=== PATIENT | female | born 1985 | race Asian ===

== ENCOUNTER 2017-04-16 02:50 | Inpatient (IN) | payer OTHER ==
[~2017-04-16] VITALS: Ht 160 cm; Wt 68.0 kg
[2017-04-16] MEDS ORDERED: LACTATED RINGERS 1,000 ML IV SCH (03:34)
[2017-04-16] MEDS ORDERED: OXYTOCIN 20 UNITS in LACTATED RINGERS 1,000 ML IV SCH (03:34)
[2017-04-16] MEDS ORDERED: AMPICILLIN 2,000 MG in NACL 0.9% MINI-BAG PLUS 100 ML IV SCH (03:35)
[2017-04-16] MEDS ORDERED: LACTATED RINGERS 500 ML IV SCH (03:35)
[2017-04-16] MEDS ORDERED: METHYLERGONOVINE 0.2 MG/ML AMP IM PRN ×2 (03:35→21:00)
[2017-04-16] MEDS ORDERED: OXYTOCIN 10 UNITS/ML VIAL IM SCH (03:35)
[2017-04-16] MEDS ORDERED: NALBUPHINE HYDROCHLORIDE 10 MG/ML VIAL IVP PRN (03:35)
[2017-04-16] MEDS ORDERED: PROMETHAZINE 25 MG/ML VIAL IVP PRN (03:35)
[2017-04-16] MEDS ORDERED: CARBOPROST 250 MCG/ML AMP IM PRN (03:35)
[2017-04-16 04:34] LABS: ALBUMIN 2.8 g/dL (3.4-5.0); ANION GAP 12.3 (8-16); CARBON DIOXIDE 26.3 mmol/L (21-32); CREATININE 0.5 mg/dL (0.6-1.3); POTASSIUM 3.6 mmol/L (3.5-5.1); TOTAL BILIRUBIN 0.6 mg/dL (0.0-1.0)
[2017-04-16] MEDS ORDERED: AMPICILLIN 2,000 MG VIAL ONE (04:39)
[2017-04-16 04:51] LABS: BASOPHILS # (AUTO) 0.1 K/uL (0.00-0.22); BASOPHILS % (AUTO) 0.9 % (0.0-2.0); EOSINOPHILS # (AUTO) 0.2 K/uL (0-0.4); EOSINOPHILS % (AUTO) 2.4 % (0.0-4.0); HEMATOCRIT 34.9 % (36-48); HEMOGLOBIN 11.3 g/dL (12.0-16.0); LYMPHOCYTES # (AUTO) 1.9 K/uL (2.5-16.5); LYMPHOCYTES % (AUTO) 23.9 % (20.5-51.1); MEAN CORPUSCULAR HEMOGLOBIN 29 pg (27-31); MEAN CORPUSCULAR HGB CONC 33 g/dL (33-37); MEAN CORPUSCULAR VOLUME 91 fL (80-94); MONOCYTES # (AUTO) 0.4 K/uL (0.8-1.0); MONOCYTES % (AUTO) 5.4 % (1.7-9.3); NEUTROPHILS # (AUTO) 5.5 K/uL (1.8-7.7); NEUTROPHILS % (AUTO) 67.4 % (42.2-75.2); PLATELET COUNT (AUTO) 281 K/uL (140-450); RED BLOOD CELL COUNT(AUTO) 3.85 MIL/uL (4.20-5.40); RED CELL DISTRIBUTION WIDTH 13.9 % (11.6-13.7); WHITE BLOOD COUNT (AUTO) 8.1 K/uL (4.8-10.8)
[2017-04-16 05:12] VITALS: BP 107/73
[2017-04-16] MEDS ORDERED: FERR-252 PO (05:15)
[2017-04-16] MEDS ORDERED: PREN-380 PO (05:15)
[2017-04-16] MEDS ORDERED: INFLUENZA VIRUS VACCINE QUAD 0.5 ML SYR IMVAC SCH (05:15)
[2017-04-16] MEDS ORDERED: AMPICILLIN 1,000 MG VIAL ONE ×2 (08:47→13:16)
[2017-04-16] MEDS ORDERED: ROPIVACAINE 0.2%/NS PREMIX 250 ML EPI ONE (09:38)
--- NOTE | 2017-04-16 10:10 | NUR ---
PATIENT HAS BEEN SCREENED AND CATEGORIZED LOW NUTRITION RISK. PATIENT WILL BE SEEN WITHIN 7 DAYS OF ADMISSION. 04/23/17 ALLEN MONROY MBA, RD
[2017-04-16] MEDS: AMPICILLIN 1,000 MG in NACL 0.9% MINI-BAG PLUS 50 ML IV SCH ×2 (13:00→17:00)
[2017-04-16] MEDS ORDERED: OXYTOCIN 10 UNITS/ML VIAL ONE (19:51)
[2017-04-16] MEDS ORDERED: OXYTOCIN 10 UNITS/ML VIAL IM PRN (21:00)
[2017-04-16] MEDS ORDERED: oxyCODONE/APAP 5/325 MG 1 TAB TAB PO PRN (21:00)
[2017-04-16] MEDS ORDERED: TEMAZEPAM 15 MG CAP PO PRN (21:00)
[2017-04-16] MEDS ORDERED: MEASLES, MUMPS, AND RUBELLA 1 VIAL SQVAC PRN (21:00)
[2017-04-16] MEDS ORDERED: DOCUSATE SOD/SENNA 50/8.6 MG 1 TAB PO SCH (21:00)
[2017-04-16] MEDS ORDERED: BENZOCAINE/MENTHOL 20%-0.5% 60 GM CAN TP PRN (21:00)
[2017-04-16] MEDS: HYDROcodone/APAP 5/325 MG 1 TAB TAB PO PRN (22:29)
[2017-04-16] MEDS ORDERED: HYDROcodone/APAP 5/325 MG 1 TAB TAB ONE (22:38)
[2017-04-17] MEDS: IBUPROFEN 800 MG TAB PO PRN ×2 (04:17→14:01)
[2017-04-17 07:18] LABS: HEMATOCRIT 30.5 % (36-48); HEMOGLOBIN 10.1 g/dL (12.0-16.0)
[2017-04-17] MEDS: HYDROcodone/APAP 5/325 MG 1 TAB TAB PO PRN (10:00)
[2017-04-17] MEDS: BETHANECHOL 25 MG TAB PO SCH (18:15)
[2017-04-17] MEDS ORDERED: BETHANECHOL 25 MG TAB ONE (18:17)
[2017-04-17] MEDS: NITROFURANTOIN 100 MG CAP PO SCH (19:45)
[2017-04-17] MEDS ORDERED: BETHANECHOL 25 MG TAB PO SCH (21:00)
[2017-04-18] MEDS ORDERED: NITROFURANTOIN 100 MG CAP PO SCH (08:00)
[2017-04-18] MEDS: NITROFURANTOIN 100 MG CAP PO SCH (09:37)
[2017-04-18] MEDS: BETHANECHOL 25 MG TAB PO SCH (09:37)
[2017-04-18] MEDS ORDERED: IBUP-2213 PO (10:43)
[2017-04-18] MEDS ORDERED: NITR100C7 PO (10:43)
[2017-04-18] MEDS ORDERED: SODIUM PHOSPHATE 118 ML ENEM RC SCH (11:00)
== END 2017-04-18 12:15 | disposition home or self-care (01) | DRG 775 ==
LOC: MLD 02:50 → MFCC 04-17 00:10
PROVIDERS: ADMIT Obstetrics & Gynecology; ATTEND Obstetrics & Gynecology
PROC: 10D07Z6 Extraction of Products of Conception, Vacuum, Via Natural or Artificial Opening (ICD-10-PCS; principal; 2017-04-16)
PROC: 0KQM0ZZ Repair Perineum Muscle, Open Approach (ICD-10-PCS; 2017-04-16)
PROC: 00HU33Z Insertion of Infusion Device into Spinal Canal, Percutaneous Approach (ICD-10-PCS; 2017-04-16)
PROC: 3E0R3BZ Introduction of Anesthetic Agent into Spinal Canal, Percutaneous Approach (ICD-10-PCS; 2017-04-16)
DX: O70.1 Second degree perineal laceration during delivery (principal); Z37.0 Single live birth; Z28.21 Immunization not carried out because of patient refusal; Z3A.39 39 weeks gestation of pregnancy; Z86.19 Personal history of other infectious and parasitic diseases
CPT/HCPCS: 36415; 51702; 80053; 85018; 85025; 86592; 86762; 86886; 86900; 86901; 87340; 87653-90; C1758; J0290; J2590; J2795; J7120